=== PATIENT | male | born 1965 | race Hispanic/Latino ===

== ENCOUNTER 2019-08-13 10:16 | Emergency (ER) | payer SELFPAY ==
--- NOTE | 2019-08-13 11:20 | XRay Report ---
CHEST 2 VIEWS INDICATION / CLINICAL INFORMATION: Chest Pain. COMPARISON: None available. FINDINGS: SUPPORT DEVICES: None. HEART / MEDIASTINUM: No significant abnormality. LUNGS / PLEURA: No significant pulmonary or pleural abnormality. No pneumothorax. ADDITIONAL FINDINGS: No significant additional findings. IMPRESSION: 1. No acute findings. Signer Name: Néstor Hernandez MD Signed: 08/13/2019 11:15 AM Workstation Name: [id number]
[2019-08-13] MEDS ORDERED: KETOROLAC 30 MG/1 ML INJ IV ONE (12:15)
[2019-08-13] MEDS ORDERED: MORPHINE 2 MG/1 ML INJ IV ONE (12:15)
[2019-08-13 12:34] VITALS: BP 146/83
[2019-08-13 13:25] LABS: Hematocrit TNR % (35.5-45.6); Hemoglobin TNR gm/dl (11.8-15.2); Mean Corpuscular HGB Conc TNR % (32-34); Mean Corpuscular Volume TNR fl (84-94); Red Blood Count TNR M/mm3 (3.65-5.03); Red Cell Distribution Width TNR % (13.2-15.2)
[2019-08-13 13:26] LABS: Basophils # (Auto) TNR K/mm3 (0.0-0.1); Basophils % (Auto) TNR % (0.0-1.8); Eosinophils # (Auto) TNR K/mm3 (0.0-0.4); Eosinophils % (Auto) TNR % (0.0-4.3); Lymphocytes % (Auto) TNR % (13.4-35.0); Monocytes % (Auto) TNR % (0.0-7.3); Platelet Count TNR K/mm3 (140-440)
[2019-08-13 13:27] LABS: Blood Urea Nitrogen TNR mg/dL (9-20); Lymphocytes # (Auto) TNR K/mm3 (1.2-5.4); Monocytes # (Auto) TNR K/mm3 (0.0-0.8)
[2019-08-13 13:28] LABS: BUN/Creatinine Ratio TNR
[2019-08-13 13:29] LABS: Calcium TNR mg/dL (8.4-10.2); Hemolysis Index TNR
== END 2019-08-13 19:12 | disposition home or self-care (01) ==
LOC: ED 10:16
DX: M54.2 Cervicalgia (principal); Z53.21 Procedure and treatment not carried out due to patient leaving prior to being seen by health care provider
CPT/HCPCS: 36415; 80048; 85025; 93005; 93010; J1885; J2270